=== PATIENT | female | born 2000 | race African-American/Black ===

== ENCOUNTER 2024-11-03 16:53 | Emergency (ER) | payer OTHER ==
[~2024-11-03] VITALS: Ht 175.3 cm; Wt 90.7 kg
[2024-11-03 17:13] VITALS: BP 132/74; PULSE 91; RESP 16; TEMP 36.7; O2SAT 99
[2024-11-03 20:32] VITALS: TEMP 98
[2024-11-03] MEDS: ACETAMINOPHEN 325MG TABLET PO ONE (20:32)
== END 2024-11-03 22:03 | disposition home or self-care (01) ==
LOC: ER 16:53
DX: S09.90XA Unspecified injury of head, initial encounter (principal); X58.XXXA Exposure to other specified factors, initial encounter; Y93.89 Activity, other specified; Y92.89 Other specified places as the place of occurrence of the external cause; Y99.8 Other external cause status
CPT/HCPCS: 81025; 99284